=== PATIENT | female | born 1945 | race Caucasian/White ===

== ENCOUNTER 2017-02-08 12:23 | Emergency (ER) | payer MEDICARE ==
[~2017-02-08] VITALS: Ht 162.6 cm; Wt 75.0 kg
[2017-02-08] MEDS ORDERED: MAALOX/HYOSCYAMINE/LIDOCAINE 45 ML BTL ONE (12:56)
[2017-02-08] MEDS ORDERED: ONDANSETRON 2MG/ML, 2ML ONE ×2 (12:56→13:16)
[2017-02-08] MEDS ORDERED: SODIUM CHLORIDE 0.9% 1,000ML IVBOLUS ONE (13:00)
[2017-02-08 13:11] LABS: HEMATOCRIT 41.8 % (34.6-47.8); HEMOGLOBIN 13.6 g/dL (11.7-16.4); WHITE BLOOD COUNT 12.4 x10^3/uL (3.4-10)
[2017-02-08 13:20] LABS: ASPARTATE AMINO TRANSFERASE 7 U/L (15-37); BLOOD UREA NITROGEN 26 mg/dL (7-18)
[2017-02-08] MEDS ORDERED: ONDANSETRON 2MG/ML, 2ML IVPush ONE ×2 (13:30→14:00)
[2017-02-08] MEDS ORDERED: MAALOX/HYOSCYAMINE/LIDOCAINE 45 ML BTL PO ONE (14:00)
[2017-02-08] MEDS ORDERED: PROMETHAZINE 25 MG/ML, 1ML ONE (14:00)
[2017-02-08] MEDS ORDERED: SODIUM CHLORIDE FLUSH 10ML SYR IVF ONE (14:00)
[2017-02-08] MEDS ORDERED: PROMETHAZINE 25 MG/ML, 1ML IM ONE (15:00)
[2017-02-08 15:34] VITALS: BP 150/89
== END 2017-02-08 15:38 | disposition home or self-care (01) ==
LOC: ED 13:23
DX: K29.70 Gastritis, unspecified, without bleeding (principal); R10.13 Epigastric pain; R11.2 Nausea with vomiting, unspecified; R19.7 Diarrhea, unspecified; I10 Essential (primary) hypertension; Z90.710 Acquired absence of both cervix and uterus
CPT/HCPCS: 36415; 76700; 80053; 81001; 83690; 85025; 85610; 87086; 93005; 96361; 96372; 96374; 99285; J2405; J2550; J7030

== ENCOUNTER 2017-09-24 08:57 | Emergency (ER) | payer MEDICARE ==
[~2017-09-24] VITALS: Ht 162.6 cm; Wt 80.1 kg
[2017-09-24 10:14] LABS: CULTURE INDICATED? YES; MICROSCOPIC INDICATED
[2017-09-24 10:59] LABS: BASOPHILS # (AUTO) 0.06 x10^3/uL (0-0.1); BASOPHILS % (AUTO) 0 % (0-1); EOSINOPHILS # (AUTO) 0.03 x10^3/uL (0-0.4); EOSINOPHILS % (AUTO) 0 % (1-7); LYMPHOCYTES # (AUTO) 1.19 x10^3/uL (1-3.4); LYMPHOCYTES % (AUTO) 9 % (22-44); MD NO; MEAN CORPUSCULAR HEMOGLOBIN 29.7 pg (27.0-34.8); MEAN CORPUSCULAR HGB CONC 32.9 g/dL (32.4-35.8); MEAN CORPUSCULAR VOLUME 90.3 fL (80-100); MEAN PLATELET VOLUME 9.2 fL (7.4-10.4); MONOCYTES # (AUTO) 0.74 x10^3/uL (0.2-0.8); MONOCYTES % (AUTO) 5 % (2-9); NEUTROPHILS # (AUTO) 11.84 x10^3/uL (1.8-6.8); NEUTROPHILS % (AUTO) 85 % (42-75); PLATELET COUNT 333 x10^3/uL (130-400); RED BLOOD COUNT 4.75 x10^6/uL (3.82-5.3); RED CELL DISTRIBUTION WIDTH 13.6 % (9.6-15.2)
[2017-09-24 11:08] LABS: ALBUMIN 3.9 g/dL (3.4-5.0); ANION GAP 9 mmol/L (5-15); CHLORIDE 110 mmol/L (98-107); CREATININE 1.69 mg/dL (0.55-1.02)
[2017-09-24] MEDS ORDERED: OXYcodone/APAP 5/325MG TABLET PO ONE (12:00)
[2017-09-24] MEDS ORDERED: KETOROLAC 30 MG/1 ML IM ONE (12:00)
[2017-09-24] MEDS ORDERED: KETOROLAC 30 MG/1 ML ONE (12:05)
[2017-09-24] MEDS ORDERED: OXYcodone/APAP 5/325MG TABLET ONE (12:05)
[2017-09-24 12:47] LABS: MICROSCOPIC INDICATED
[2017-09-24] MEDS ORDERED: ONDANSETRON ODT 4 MG ONE (12:48)
[2017-09-24 12:52] VITALS: BP 143/84
[2017-09-24] MEDS ORDERED: ONDANSETRON ODT 8 MG PO ONE (13:00)
[2017-09-24 13:30] LABS: CULTURE INDICATED? NO
[2017-09-24] MEDS ORDERED: HYDROcodone/APAP 10/325 MG TABLET PO ONE (13:30)
== END 2017-09-24 14:29 | disposition home or self-care (01) ==
LOC: ED 11:45
DX: N13.2 Hydronephrosis with renal and ureteral calculous obstruction (principal); N39.0 Urinary tract infection, site not specified; I10 Essential (primary) hypertension
CPT/HCPCS: 36415; 74176; 80048; 81001; 82040; 85025; 87086; 99285; Q0162

== ENCOUNTER 2017-12-29 09:27 | Emergency (ER) | payer MEDICARE ==
[~2017-12-29] VITALS: Ht 162.6 cm; Wt 76.4 kg
[2017-12-29] MEDS ORDERED: LOSA25TA5 PO (09:56)
[2017-12-29 10:23] LABS: BASOPHILS # (AUTO) 0.07 x10^3/uL (0-0.1); BASOPHILS % (AUTO) 1 % (0-1); EOSINOPHILS # (AUTO) 0.03 x10^3/uL (0-0.4); EOSINOPHILS % (AUTO) 0 % (1-7); LYMPHOCYTES # (AUTO) 1.78 x10^3/uL (1-3.4); LYMPHOCYTES % (AUTO) 14 % (22-44); MD NO; MEAN CORPUSCULAR HEMOGLOBIN 30.6 pg (27.0-34.8); MEAN CORPUSCULAR HGB CONC 33.5 g/dL (32.4-35.8); MEAN CORPUSCULAR VOLUME 91.3 fL (80-100); MEAN PLATELET VOLUME 9.4 fL (7.4-10.4); MONOCYTES # (AUTO) 0.83 x10^3/uL (0.2-0.8); MONOCYTES % (AUTO) 7 % (2-9); NEUTROPHILS # (AUTO) 9.84 x10^3/uL (1.8-6.8); NEUTROPHILS % (AUTO) 78 % (42-75); PLATELET COUNT 343 x10^3/uL (130-400); RED CELL DISTRIBUTION WIDTH 14.2 % (9.6-15.2)
[2017-12-29 10:28] LABS: ALANINE AMINOTRANSFERASE 17 U/L (12-78); ALBUMIN 3.5 g/dL (3.4-5.0); ANION GAP 10 mmol/L (5-15); CALCIUM 8.8 mg/dL (8.5-10.1); CHLORIDE 108 mmol/L (98-107); CREATININE 1.51 mg/dL (0.55-1.02)
[2017-12-29 10:30] LABS: ALKALINE PHOSPHATASE 57 U/L (45-117); BILIRUBIN,TOTAL 0.5 mg/dL (0.2-1.0); TOTAL PROTEIN 7.2 g/dL (6.4-8.2)
[2017-12-29] MEDS ORDERED: SODIUM CHLORIDE FLUSH 10ML SYR IVF ONE (10:30)
[2017-12-29] MEDS ORDERED: MAALOX/HYOSCYAMINE/LIDOCAINE 45 ML BTL PO ONE (10:30)
[2017-12-29] MEDS ORDERED: SODIUM CHLORIDE 0.9% 1,000ML IVBOLUS ONE (10:30)
[2017-12-29] MEDS ORDERED: MAALOX/HYOSCYAMINE/LIDOCAINE 45 ML BTL ONE (10:44)
[2017-12-29] MEDS ORDERED: DIPHENHYDRAMINE 50 MG/ML, 1ML ONE (11:02)
[2017-12-29] MEDS ORDERED: DIPHENHYDRAMINE 50 MG/ML, 1ML IVPush ONE (11:30)
[2017-12-29] MEDS ORDERED: OMNIPAQUE 350 MG/ML, 100ML BOTTLE ONE (11:39)
[2017-12-29 12:50] LABS: MICROSCOPIC NOT IND
[2017-12-29 12:53] LABS: CULTURE INDICATED? NO
[2017-12-29] MEDS ORDERED: SINCALIDE (KINEVAC) 5 MCG ONE (14:11)
[2017-12-29 16:42] VITALS: BP 160/88
== END 2017-12-29 16:44 | disposition home or self-care (01) ==
LOC: ED 12:56
DX: K29.00 Acute gastritis without bleeding (principal); I10 Essential (primary) hypertension; Z90.89 Acquired absence of other organs; Z87.891 Personal history of nicotine dependence; Z90.710 Acquired absence of both cervix and uterus
CPT/HCPCS: 36415; 74177; 78227; 80053; 81003; 83690; 85025; 86677; 96361; 96374; 99285; A9537; C9898; J1200; J2805; J7030; Q9967

== ENCOUNTER 2018-06-02 13:56 | Observation (INO) | payer MEDICARE ==
[~2018-06-02] VITALS: Ht 162.6 cm; Wt 75.4 kg
[~2018-06-02 13:56] MED LIST: LOSA25TA25 PO
--- NOTE | 2018-06-02 14:46 | NUR ---
PT AMBULATORY TO ROOM 34 W/ C/O BLURRY VISION TO L EYE STARTED 3-4 DAYS AGO. PT STATES SHE IS STARTING TO HAVE BLURRY VISION IN RIGHT EYE OVER THE PAST DAY. PT ALSO C/O ABRAMS PAIN TO L TEMPORAL SIDE. PT RESTING ON GURNEY. TRISTAN. CHRISTOS SHARYN AT BEDSIDE. ALL OTHER NEURO INTACT.
[2018-06-02 14:49] LABS: BASOPHILS # (AUTO) 0.07 x10^3/uL (0-0.1); BASOPHILS % (AUTO) 1 % (0-1); EOSINOPHILS # (AUTO) 0.31 x10^3/uL (0-0.4); EOSINOPHILS % (AUTO) 2 % (1-7); LYMPHOCYTES # (AUTO) 2.19 x10^3/uL (1-3.4); LYMPHOCYTES % (AUTO) 14 % (22-44); MD NO; MEAN CORPUSCULAR HEMOGLOBIN 31.2 pg (27.0-34.8); MEAN CORPUSCULAR HGB CONC 33.4 g/dL (32.4-35.8); MEAN CORPUSCULAR VOLUME 93.3 fL (80-100); MEAN PLATELET VOLUME 9.1 fL (7.4-10.4); MONOCYTES # (AUTO) 1.28 x10^3/uL (0.2-0.8); MONOCYTES % (AUTO) 8 % (2-9); NEUTROPHILS # (AUTO) 11.39 x10^3/uL (1.8-6.8); NEUTROPHILS % (AUTO) 75 % (42-75); PLATELET COUNT 432 x10^3/uL (130-400); RED BLOOD COUNT 4.37 x10^6/uL (3.82-5.3); RED CELL DISTRIBUTION WIDTH 13.4 % (9.6-15.2)
--- NOTE | 2018-06-02 14:55 | NUR ---
REPORT GIVEN TO CHASE VAZQUEZ.
--- NOTE | 2018-06-02 14:56 | NUR ---
SBAR report received from RNLeana. Pt ambulated with EDT for VAs. Labs drawn and pt aware of plan for CT scan. Family member at bedside.
[2018-06-02 14:59] LABS: ANION GAP 7 mmol/L (5-15); CHLORIDE 109 mmol/L (98-107)
[2018-06-02] MEDS ORDERED: HYDROcodone/APAP 5/325 TABLET ONE (14:59)
[2018-06-02] MEDS ORDERED: ONDANSETRON ODT 4 MG ONE (14:59)
[2018-06-02] MEDS ORDERED: HYDROcodone/APAP 5/325 TABLET PO ONE (15:00)
[2018-06-02] MEDS ORDERED: ONDANSETRON ODT 4 MG PO ONE (15:00)
[2018-06-02] MEDS ORDERED: PROPARACAINE OPHTH 0.5%, 15ML EACHEYE ONE (15:00)
--- NOTE | 2018-06-02 15:01 | NUR ---
Pt medicated per MAR.
[2018-06-02] MEDS ORDERED: PROPARACAINE OPHTH 0.5%, 15ML ONE ×2 (15:07→17:02)
[2018-06-02] MEDS ORDERED: DIPHENHYDRAMINE 50 MG/ML, 1ML ONE (15:52)
--- NOTE | 2018-06-02 16:16 | NUR ---
Pt to imaging, with tech, on tony.
--- NOTE | 2018-06-02 16:25 | NUR ---
Pt back to room from imaging.
[2018-06-02] MEDS ORDERED: DIPHENHYDRAMINE 50 MG/ML, 1ML IVPush ONE (16:30)
[2018-06-02] MEDS ORDERED: OMNIPAQUE 350 MG/ML, 100ML BOTTLE ONE (16:35)
--- NOTE | 2018-06-02 17:47 | NUR ---
SBAR report to RN, Nadine. Pt moved to eye room.
--- NOTE | 2018-06-02 17:50 | NUR ---
REPORT RECEIVED FROM CHASE VAZQUEZ.
--- NOTE | 2018-06-02 18:15 | NUR ---
RN INTRODUCED SELF TO PT AND FAMILY. PT RESTING COMFORTABLY IN CHAIR. NO NEEDS AT THIS TIME. AWAITING MD TO ROUND ON PT. ORIENTED PT TO CALL LIGHT. PT VERBALIZED UNDERSTANDING. RN TO CONTINUE TO MONITOR.
[2018-06-02] MEDS ORDERED: FENO67CA PO (18:35)
[2018-06-02] MEDS ORDERED: CLON0.1T22 PO (18:35)
[2018-06-02] MEDS ORDERED: LOSA50TA7 PO (18:35)
[2018-06-02] MEDS ORDERED: AMLO-150 PO (18:35)
--- NOTE | 2018-06-02 18:55 | NUR ---
REPORT TO CHASE LEO.
--- NOTE | 2018-06-02 18:57 | NUR ---
REPORT FROM OSVALDO STONE. PT HAS NO NEEDS AT THIS TIME. CALL LIGHT IN REACH
--- NOTE | 2018-06-02 19:20 | NUR ---
opthomology at bedside
[2018-06-02 20:45] VITALS: BP 111/74
[2018-06-02] MEDS ORDERED: LABETALOL 5MG/ML, 20ML IV PRN (21:00)
[2018-06-02] MEDS ORDERED: ONDANSETRON 2MG/ML, 2ML IVPush PRN (21:00)
[2018-06-02] MEDS: HEPARIN 5,000 UNITS/ML, 1ML SQ SCH (21:00)
[2018-06-02] MEDS ORDERED: ACETAMINOPHEN 325 MG TABLET PO PRN (21:00)
[2018-06-02] MEDS ORDERED: morphine SULFATE 10 MG/ML, 1ML IVPush PRN (21:00)
[2018-06-02] MEDS: MELATONIN 5 MG TABLET PO SCH (21:44)
[2018-06-02] MEDS: NS + 20MEQ KCL 1,000 ML IV SCH (22:30)
[2018-06-03 01:54] VITALS: BP 111/71
[2018-06-03] MEDS: HEPARIN 5,000 UNITS/ML, 1ML SQ SCH ×4 (04:37→21:28)
[2018-06-03 04:50] LABS: BASOPHILS # (AUTO) 0.03 x10^3/uL (0-0.1); BASOPHILS % (AUTO) 0 % (0-1); EOSINOPHILS # (AUTO) 0.13 x10^3/uL (0-0.4); EOSINOPHILS % (AUTO) 1 % (1-7); LYMPHOCYTES # (AUTO) 2.16 x10^3/uL (1-3.4); LYMPHOCYTES % (AUTO) 18 % (22-44); MD NO; MEAN CORPUSCULAR HEMOGLOBIN 31.5 pg (27.0-34.8); MEAN CORPUSCULAR HGB CONC 34.1 g/dL (32.4-35.8); MEAN CORPUSCULAR VOLUME 92.2 fL (80-100); MEAN PLATELET VOLUME 8.7 fL (7.4-10.4); MONOCYTES # (AUTO) 1.19 x10^3/uL (0.2-0.8); MONOCYTES % (AUTO) 10 % (2-9); NEUTROPHILS # (AUTO) 8.84 x10^3/uL (1.8-6.8); NEUTROPHILS % (AUTO) 72 % (42-75); PLATELET COUNT 335 x10^3/uL (130-400); RED BLOOD COUNT 3.74 x10^6/uL (3.82-5.3); RED CELL DISTRIBUTION WIDTH 13.8 % (9.6-15.2)
[2018-06-03 04:55] LABS: ANION GAP 7 mmol/L (5-15); CALCIUM 7.6 mg/dL (8.5-10.1); CHLORIDE 113 mmol/L (98-107); CHOLESTEROL, TOTAL 135 mg/dL (140-239); CREATININE 1.41 mg/dL (0.55-1.02); TRIGLYCERIDES 302 mg/dL (50-200); VLDL CHOLESTEROL 60 mg/dL (0-25)
[2018-06-03 04:57] LABS: CHOL/HDL RATIO 4.1; HDL CHOL % 24 % (28-40); HDL CHOLESTEROL (DIRECT) 33 mg/dL (40-60); LDL CHOLESTEROL,CALCULATED 42 mg/dL (54-169); LDL/HDL RATIO 1.3 (0.5-3.0)
[2018-06-03 07:43] VITALS: BP 108/77
[2018-06-03] MEDS: NS + 20MEQ KCL 1,000 ML IV SCH (08:04)
[2018-06-03] MEDS: ASPIRIN 81 MG TABLET CHEW PO/NG SCH (08:04)
[2018-06-03] MEDS: ONDANSETRON ODT 4 MG PO PRN (08:05)
[2018-06-03] MEDS: HYDROcodone/APAP 5/325 TABLET PO PRN ×2 (08:05→13:21)
[2018-06-03] MEDS ORDERED: FENOFIBRATE PO SCH (09:00)
[2018-06-03] MEDS ORDERED: SUMATRIPTAN 6MG/0.5ML SQ PRN (09:00)
[2018-06-03] MEDS: FENOFIBRATE 145 MG TABLET PO SCH (11:06)
[2018-06-03 12:10] LABS: HCT (SEDRATE) 37.5 % (34.6-47.8)
[2018-06-03] MEDS ORDERED: GADOBUTROL 7.5 MMOL/7.5 ML PFS ONE (12:33)
[2018-06-03 15:02] VITALS: BP 124/80
[2018-06-03 17:20] LABS: HEMOGLOBIN A1C 6.2 % (4.2-6.3)
[2018-06-03] MEDS: MELATONIN 5 MG TABLET PO SCH (21:00)
[2018-06-03 21:06] VITALS: BP 106/73
[2018-06-04 00:55] VITALS: BP 110/81
[2018-06-04 06:12] LABS: ANION GAP 9 mmol/L (5-15); CALCIUM 8.5 mg/dL (8.5-10.1); CHLORIDE 111 mmol/L (98-107); CREATININE 1.24 mg/dL (0.55-1.02)
[2018-06-04] MEDS: ONDANSETRON ODT 4 MG PO PRN ×2 (07:41→12:52)
[2018-06-04] MEDS: ASPIRIN 81 MG TABLET CHEW PO/NG SCH (07:41)
[2018-06-04] MEDS: FENOFIBRATE 145 MG TABLET PO SCH (07:41)
[2018-06-04] MEDS: HYDROcodone/APAP 5/325 TABLET PO PRN ×2 (07:42→12:52)
[2018-06-04 07:47] VITALS: BP 123/86
[2018-06-04] MEDS ORDERED: AMLODIPINE 10 MG TAB PO SCH (09:00)
[2018-06-04] MEDS ORDERED: OMNIPAQUE 350 MG/ML, 100ML BOTTLE ONE (10:28)
[2018-06-04] MEDS: HEPARIN 5,000 UNITS/ML, 1ML SQ SCH (13:00)
[2018-06-04] MEDS ORDERED: HYDR-3240 PO (13:01)
[2018-06-04] MEDS ORDERED: ONDA4TAB13 PO (13:01)
[2018-06-04] MEDS ORDERED: SUMA50TA4 PO (13:01)
== END 2018-06-04 15:45 | disposition home or self-care (01) ==
LOC: ED 16:23 → INTOOBSV 19:24 → EDIP 19:24 → 3NE 20:50 → DCLOUNGE 06-04 15:30
PROVIDERS: ADMIT Internal Medicine; ATTEND Internal Medicine
DX: H49.02 Third [oculomotor] nerve palsy, left eye (principal); H53.8 Other visual disturbances; R51 Headache; H53.2 Diplopia; I10 Essential (primary) hypertension; E78.5 Hyperlipidemia, unspecified; D47.3 Essential (hemorrhagic) thrombocythemia; I25.10 Atherosclerotic heart disease of native coronary artery without angina pectoris; Z87.891 Personal history of nicotine dependence; Z90.710 Acquired absence of both cervix and uterus
CPT/HCPCS: 36415; 70470; 70481; 70496; 70498; 70543; 70553; 80048; 80061; 82040; 83036; 84443; 85025; 85651; 86592; 93005; 96372; 96374; 97162; 99284; A9585; G0378; G8978; G8979; G8980; J1200; J3030; J3480; Q0162; Q9967; 99285

== ENCOUNTER 2018-08-09 15:33 | Inpatient (IN) | payer MEDICARE ==
[~2018-08-09] VITALS: Ht 162.6 cm; Wt 69.6 kg
[~2018-08-09 15:33] MED LIST changes: +AMLO-150 PO; +CLON0.1T22 PO; +FENO67CA PO; +HYDR-3240 PO; +LOSA50TA14 PO; +ONDA4TAB13 PO; +SUMA50TA4 PO
--- NOTE | 2018-08-09 15:37 | NUR ---
NO ANSWER WHEN PT CALLED FOR TRIAGE.
[2018-08-09 17:01] LABS: BASOPHILS # (AUTO) 0.06 x10^3/uL (0-0.1); BASOPHILS % (AUTO) 1 % (0-1); EOSINOPHILS # (AUTO) 0.06 x10^3/uL (0-0.4); EOSINOPHILS % (AUTO) 1 % (1-7); LYMPHOCYTES # (AUTO) 1.75 x10^3/uL (1-3.4); LYMPHOCYTES % (AUTO) 14 % (22-44); MD NO; MEAN CORPUSCULAR HEMOGLOBIN 29.9 pg (27.0-34.8); MEAN CORPUSCULAR HGB CONC 32.3 g/dL (32.4-35.8); MEAN CORPUSCULAR VOLUME 92.5 fL (80-100); MEAN PLATELET VOLUME 10.2 fL (7.4-10.4); MONOCYTES # (AUTO) 0.94 x10^3/uL (0.2-0.8); MONOCYTES % (AUTO) 8 % (2-9); NEUTROPHILS # (AUTO) 9.57 x10^3/uL (1.8-6.8); NEUTROPHILS % (AUTO) 77 % (42-75); PLATELET COUNT 336 x10^3/uL (130-400); RED BLOOD COUNT 4.41 x10^6/uL (3.82-5.3); RED CELL DISTRIBUTION WIDTH 13.3 % (9.6-15.2)
[2018-08-09 17:02] LABS: ALBUMIN 3.5 g/dL (3.4-5.0); ANION GAP 8 mmol/L (5-15); CALCIUM 9.1 mg/dL (8.5-10.1); CHLORIDE 112 mmol/L (98-107)
[2018-08-09 17:08] LABS: ALANINE AMINOTRANSFERASE 20 U/L (12-78); ALKALINE PHOSPHATASE 60 U/L (45-117); BILIRUBIN,TOTAL 0.4 mg/dL (0.2-1.0); CREATININE 1.82 mg/dL (0.55-1.02); TROPONIN I < 0.015 ng/mL (0.000-0.045)
--- NOTE | 2018-08-09 18:08 | NUR ---
to room at this time
--- NOTE | 2018-08-09 18:24 | NUR ---
PT LYING IN GURNEY, DAUGHTER AT BS. INFORMED PT OF NEED FOR URINE SAMPLE.
[2018-08-09] MEDS ORDERED: MORPHINE SULFATE 4 MG/ML, 1ML IVPush PRN (19:00)
[2018-08-09] MEDS ORDERED: ONDANSETRON 2MG/ML, 2ML IVPush ONE (19:00)
[2018-08-09] MEDS ORDERED: SODIUM CHLORIDE FLUSH 10ML SYR IVF ONE (19:00)
[2018-08-09] MEDS ORDERED: SODIUM CHLORIDE 0.9% 1,000ML IVBOLUS ONE (19:00)
--- NOTE | 2018-08-09 19:02 | NUR ---
PT UNABLE TO VOID AT THIS TIME. TO CT VIA RTIOGA NOW.
[2018-08-09] MEDS ORDERED: ONDANSETRON 2MG/ML, 2ML ONE (19:40)
[2018-08-09] MEDS ORDERED: MORPHINE SULFATE 4 MG/ML, 1ML ONE (19:40)
--- NOTE | 2018-08-09 19:47 | NUR ---
IV EST'D AND PT MEDICATED FOR PAIN AND NAUSEA. UNDERSTANDS POC. SON AT BS.
[2018-08-09] MEDS ORDERED: BUTA-177 PO (20:05)
[2018-08-09] MEDS ORDERED: CELE200C PO (20:05)
[2018-08-09] MEDS ORDERED: AMLO10TA8 PO (20:05)
[2018-08-09] MEDS ORDERED: LABETALOL 5MG/ML, 20ML IVPush PRN (21:00)
[2018-08-09] MEDS ORDERED: MAALOX/HYOSCYAMINE/LIDOCAINE 45 ML BTL PO ONE (21:30)
[2018-08-09] MEDS ORDERED: morphine SULFATE 10 MG/ML, 1ML IVPush SCH (21:30)
[2018-08-09] MEDS ORDERED: POLYETHYLENE GLYCOL 17 GM PACKET NG ONE (22:00)
[2018-08-09] MEDS ORDERED: POLYETHYLENE GLYCOL 17 GM PACKET PO PRN (22:00)
[2018-08-09] MEDS ORDERED: DOCUSATE 100 MG CAPSULE PO PRN (22:00)
[2018-08-09 22:30] VITALS: BP 141/69
[2018-08-09] MEDS ORDERED: OMNIPAQUE 350 MG/ML, 100ML BOTTLE ONE (23:58)
[2018-08-10] MEDS: LACTATED RINGERS 1,000 ML IV SCH ×2 (00:31→11:52)
[2018-08-10 05:36] LABS: MICROSCOPIC NOT IND
[2018-08-10 05:40] LABS: CULTURE INDICATED? NO
[2018-08-10 05:40] LABS: BASOPHILS # (AUTO) 0.01 x10^3/uL (0-0.1); BASOPHILS % (AUTO) 0 % (0-1); EOSINOPHILS % (AUTO) 2 % (1-7); LYMPHOCYTES # (AUTO) 1.44 x10^3/uL (1-3.4); LYMPHOCYTES % (AUTO) 15 % (22-44); MD NO; MEAN CORPUSCULAR HEMOGLOBIN 30.7 pg (27.0-34.8); MEAN CORPUSCULAR HGB CONC 33.2 g/dL (32.4-35.8); MEAN CORPUSCULAR VOLUME 92.5 fL (80-100); MEAN PLATELET VOLUME 9.7 fL (7.4-10.4); MONOCYTES # (AUTO) 0.76 x10^3/uL (0.2-0.8); MONOCYTES % (AUTO) 8 % (2-9); NEUTROPHILS # (AUTO) 6.96 x10^3/uL (1.8-6.8); NEUTROPHILS % (AUTO) 74 % (42-75); PLATELET COUNT 199 x10^3/uL (130-400); RED BLOOD COUNT 3.79 x10^6/uL (3.82-5.3)
[2018-08-10 05:42] LABS: ALBUMIN 2.9 g/dL (3.4-5.0); ANION GAP 5 mmol/L (5-15); CALCIUM 8.5 mg/dL (8.5-10.1); CHLORIDE 111 mmol/L (98-107)
[2018-08-10 05:46] LABS: ALANINE AMINOTRANSFERASE 55 U/L (12-78); ALKALINE PHOSPHATASE 59 U/L (45-117); BILIRUBIN,TOTAL 0.4 mg/dL (0.2-1.0); CREATININE 1.35 mg/dL (0.55-1.02); TOTAL PROTEIN 5.5 g/dL (6.4-8.2)
[2018-08-10] MEDS: CEFTRIAXONE PMX 2GM/50ML 50 ML IV SCH (06:01)
[2018-08-10] MEDS: METRONIDAZOLE PMX 500MG/100ML 100 ML IV SCH ×3 (06:48→22:21)
[2018-08-10 07:01] LABS: INTERNATIONAL NORMALIZED RATIO 0.94 (0.93-1.1); PROTHROMBIN TIME 9.9 Seconds (9.6-11.5)
[2018-08-10 07:58] VITALS: BP 126/81
[2018-08-10] MEDS ORDERED: AMLODIPINE 10 MG TAB PO SCH (09:00)
[2018-08-10] MEDS: morphine SULFATE 10 MG/ML, 1ML IVPush PRN ×2 (11:13→14:27)
[2018-08-10 14:33] VITALS: BP 113/71
[2018-08-10 19:09] VITALS: BP 115/68
[2018-08-10] MEDS: POLYETHYLENE GLYCOL 17 GM PACKET PO SCH (22:21)
[2018-08-10] MEDS: HYDROcodone/APAP 5/325 TABLET PO PRN (22:22)
[2018-08-11 01:32] VITALS: BP 91/59
[2018-08-11 05:32] LABS: BASOPHILS # (AUTO) 0.04 x10^3/uL (0-0.1); BASOPHILS % (AUTO) 1 % (0-1); EOSINOPHILS # (AUTO) 0.14 x10^3/uL (0-0.4); EOSINOPHILS % (AUTO) 2 % (1-7); LYMPHOCYTES # (AUTO) 1.13 x10^3/uL (1-3.4); LYMPHOCYTES % (AUTO) 18 % (22-44); MD NO; MEAN CORPUSCULAR HEMOGLOBIN 31.1 pg (27.0-34.8); MEAN CORPUSCULAR HGB CONC 33.8 g/dL (32.4-35.8); MEAN PLATELET VOLUME 9.6 fL (7.4-10.4); MONOCYTES # (AUTO) 0.53 x10^3/uL (0.2-0.8); MONOCYTES % (AUTO) 9 % (2-9); NEUTROPHILS # (AUTO) 4.33 x10^3/uL (1.8-6.8); NEUTROPHILS % (AUTO) 70 % (42-75); PLATELET COUNT 190 x10^3/uL (130-400); RED BLOOD COUNT 3.59 x10^6/uL (3.82-5.3); RED CELL DISTRIBUTION WIDTH 13.3 % (9.6-15.2)
[2018-08-11] MEDS: CEFTRIAXONE PMX 2GM/50ML 50 ML IV SCH (05:39)
[2018-08-11 05:40] LABS: ANION GAP 5 mmol/L (5-15); CALCIUM 8.4 mg/dL (8.5-10.1); CHLORIDE 112 mmol/L (98-107); CREATININE 1.21 mg/dL (0.55-1.02)
[2018-08-11] MEDS: ONDANSETRON 2MG/ML, 2ML IVPush PRN ×2 (05:41→12:34)
[2018-08-11] MEDS: METRONIDAZOLE PMX 500MG/100ML 100 ML IV SCH ×3 (06:42→21:29)
[2018-08-11] MEDS: HYDROcodone/APAP 5/325 TABLET PO PRN ×2 (06:45→11:22)
[2018-08-11 07:20] VITALS: BP 105/62
[2018-08-11] MEDS: SENNA/DOCUSATE TABLET PO SCH ×2 (09:44→21:29)
[2018-08-11] MEDS: BISACODYL 10 MG SUPP PR SCH (09:44)
[2018-08-11] MEDS: POLYETHYLENE GLYCOL 17 GM PACKET PO SCH ×2 (09:44→21:28)
[2018-08-11 14:00] VITALS: BP 146/81
[2018-08-11] MEDS ORDERED: ACETAMINOPHEN 325 MG TABLET PO PRN (19:00)
[2018-08-11 20:59] VITALS: BP 120/74
[2018-08-12] MEDS: ONDANSETRON 2MG/ML, 2ML IVPush PRN ×2 (01:59→13:59)
[2018-08-12 02:50] VITALS: BP 123/82
[2018-08-12 03:43] LABS: OCCULT BLOOD NEGATIVE (NEGATIVE)
[2018-08-12] MEDS: CEFTRIAXONE PMX 2GM/50ML 50 ML IV SCH (05:04)
[2018-08-12] MEDS: METRONIDAZOLE PMX 500MG/100ML 100 ML IV SCH ×3 (06:18→21:56)
[2018-08-12] MEDS: POLYETHYLENE GLYCOL 17 GM PACKET PO SCH ×2 (07:06→21:00)
[2018-08-12] MEDS: BISACODYL 10 MG SUPP PR SCH (07:06)
[2018-08-12] MEDS: SENNA/DOCUSATE TABLET PO SCH ×2 (07:06→21:00)
[2018-08-12 07:25] VITALS: BP 127/65
[2018-08-12] MEDS ORDERED: POLY17PO5 PO (13:49)
[2018-08-12] MEDS ORDERED: METR-90 PO (13:49)
[2018-08-12] MEDS ORDERED: CEFD300C37 PO (13:49)
[2018-08-12 14:53] VITALS: BP 122/76
[2018-08-12 20:21] VITALS: BP 107/72
[2018-08-12] MEDS: FAMOTIDINE 20 MG/2 ML IVPush SCH (21:56)
[2018-08-13 01:07] VITALS: BP 105/68
[2018-08-13] MEDS: CEFTRIAXONE PMX 2GM/50ML 50 ML IV SCH (05:42)
[2018-08-13] MEDS: METRONIDAZOLE PMX 500MG/100ML 100 ML IV SCH (06:38)
[2018-08-13 07:35] VITALS: BP 117/74
[2018-08-13] MEDS: FAMOTIDINE 20 MG/2 ML IVPush SCH (08:36)
[2018-08-13] MEDS: SENNA/DOCUSATE TABLET PO SCH (08:36)
[2018-08-13] MEDS: BISACODYL 10 MG SUPP PR SCH (08:36)
[2018-08-13] MEDS: POLYETHYLENE GLYCOL 17 GM PACKET PO SCH (08:36)
== END 2018-08-13 09:45 | disposition home or self-care (01) | DRG 391 ==
LOC: ED 20:32 → EDIP 20:36 → 4NOR 22:17 → DCLOUNGE 08-13 09:35
PROVIDERS: ADMIT Family Medicine; ATTEND Family Medicine
DX: K57.80 Diverticulitis of intestine, part unspecified, with perforation and abscess without bleeding (principal); N17.0 Acute kidney failure with tubular necrosis; R17 Unspecified jaundice; D72.829 Elevated white blood cell count, unspecified; E11.22 Type 2 diabetes mellitus with diabetic chronic kidney disease; I12.9 Hypertensive chronic kidney disease with stage 1 through stage 4 chronic kidney disease, or unspecified chronic kidney disease; I25.10 Atherosclerotic heart disease of native coronary artery without angina pectoris; E11.40 Type 2 diabetes mellitus with diabetic neuropathy, unspecified; K59.03 Drug induced constipation; N18.9 Chronic kidney disease, unspecified; Z66 Do not resuscitate; H53.2 Diplopia; N93.9 Abnormal uterine and vaginal bleeding, unspecified; T40.605A Adverse effect of unspecified narcotics, initial encounter; Y92.89 Other specified places as the place of occurrence of the external cause; Z90.710 Acquired absence of both cervix and uterus; Z90.49 Acquired absence of other specified parts of digestive tract
CPT/HCPCS: 36415; 71045; 74022; 74176; 74177; 80048; 80053; 81003; 82272; 83605; 83690; 84484; 85025; 85610; 85730; 93005; 96374; G0378; J0696; J2405; Q9967; J2270; J3490; J7030; J7120

== ENCOUNTER 2018-08-25 17:02 | Emergency (ER) | payer MEDICARE ==
[~2018-08-25] VITALS: Ht 193 cm; Wt 66.5 kg
[~2018-08-25 17:02] MED LIST changes: +AMLO10TA8 PO; +BUTA-177 PO; +CEFD300C37 PO; +CELE200C PO; +METR-90 PO; +POLY17PO5 PO
[2018-08-25 17:03] VITALS: BP 121/84
[2018-08-25 17:26] LABS: BASOPHILS # (AUTO) 0.04 x10^3/uL (0-0.1); BASOPHILS % (AUTO) 0 % (0-1); EOSINOPHILS # (AUTO) 0.06 x10^3/uL (0-0.4); EOSINOPHILS % (AUTO) 1 % (1-7); LYMPHOCYTES # (AUTO) 1.82 x10^3/uL (1-3.4); LYMPHOCYTES % (AUTO) 15 % (22-44); MD NO; MEAN CORPUSCULAR HEMOGLOBIN 30.9 pg (27.0-34.8); MEAN CORPUSCULAR HGB CONC 33.3 g/dL (32.4-35.8); MEAN CORPUSCULAR VOLUME 92.7 fL (80-100); MEAN PLATELET VOLUME 9.5 fL (7.4-10.4); MONOCYTES # (AUTO) 1.02 x10^3/uL (0.2-0.8); MONOCYTES % (AUTO) 8 % (2-9); NEUTROPHILS # (AUTO) 9.27 x10^3/uL (1.8-6.8); NEUTROPHILS % (AUTO) 76 % (42-75); PLATELET COUNT 334 x10^3/uL (130-400); RED BLOOD COUNT 4.68 x10^6/uL (3.82-5.3); RED CELL DISTRIBUTION WIDTH 13.8 % (9.6-15.2)
[2018-08-25 17:35] LABS: ALANINE AMINOTRANSFERASE 17 U/L (12-78); ALBUMIN 3.9 g/dL (3.4-5.0); ANION GAP 7 mmol/L (5-15); CALCIUM 9.5 mg/dL (8.5-10.1); CHLORIDE 116 mmol/L (98-107); CREATININE 1.42 mg/dL (0.55-1.02)
[2018-08-25 17:37] LABS: ALKALINE PHOSPHATASE 52 U/L (45-117); BILIRUBIN,TOTAL 0.5 mg/dL (0.2-1.0)
--- NOTE | 2018-08-25 18:59 | NUR ---
Pt presents for being ubable to urinate more than a few drops since last night. Pt takin abx for diverticulitis. Pt states neeed to urinate but relieved by sitting up. Bladder scan 191ml. Pt NAD. Navarro inserted.
[2018-08-25 19:01] LABS: MICROSCOPIC AUTO
[2018-08-25 19:15] LABS: CULTURE INDICATED? YES
--- NOTE | 2018-08-25 19:58 | NUR ---
Ramon changed to leg bag. Pt dc in WC with family. NAD.
== END 2018-08-25 20:00 | disposition home or self-care (01) ==
LOC: ED 19:54
DX: R33.0 Drug induced retention of urine (principal); I10 Essential (primary) hypertension; Z90.49 Acquired absence of other specified parts of digestive tract; Z90.710 Acquired absence of both cervix and uterus
CPT/HCPCS: 36415; 51702; 74176; 80053; 81001; 85025; 87086; 99284

== ENCOUNTER 2018-08-28 13:10 | Inpatient (IN) | payer MEDICARE ==
[~2018-08-28] VITALS: Ht 162.6 cm; Wt 65.9 kg
[2018-08-28] MEDS ORDERED: SODIUM CHLORIDE FLUSH 10ML SYR IVF ONE (13:30)
[2018-08-28] MEDS ORDERED: PLEASE ENTER HEIGHT AND WEIGHT MC SCH (13:30)
--- NOTE | 2018-08-28 13:31 | NUR ---
Pt BIB EMS from home for ALOC and new onset L sided deficits. Pt was definitively last seen normal at 2100 last night but family that lives with pt states that they heard her up and about this morning. Pt states she ambulated to BR this AM and that she had sudden onset of ABRAMS to R frontal area at about 0900. Pt had no movement to L side of body or face, slurred speech, ABRAMS to R frontal. Full sensation bilaterally. AAOx4 however, family states she ias acting not herself. Pt will not track with either eye. 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 VSS per EMS report. BG 135 by EMS. Family at bedside.
[2018-08-28 14:09] LABS: BASOPHILS # (AUTO) 0.04 x10^3/uL (0-0.1); BASOPHILS % (AUTO) 0 % (0-1); EOSINOPHILS # (AUTO) 0.02 x10^3/uL (0-0.4); EOSINOPHILS % (AUTO) 0 % (1-7); HCT (SEDRATE) 42.3 % (34.6-47.8); LYMPHOCYTES # (AUTO) 1.24 x10^3/uL (1-3.4); LYMPHOCYTES % (AUTO) 12 % (22-44); MD NO; MEAN CORPUSCULAR HEMOGLOBIN 30.5 pg (27.0-34.8); MEAN CORPUSCULAR HGB CONC 32.9 g/dL (32.4-35.8); MEAN CORPUSCULAR VOLUME 92.9 fL (80-100); MONOCYTES # (AUTO) 0.85 x10^3/uL (0.2-0.8); MONOCYTES % (AUTO) 9 % (2-9); NEUTROPHILS # (AUTO) 7.84 x10^3/uL (1.8-6.8); NEUTROPHILS % (AUTO) 78 % (42-75); PLATELET COUNT 292 x10^3/uL (130-400); RED BLOOD COUNT 4.54 x10^6/uL (3.82-5.3); RED CELL DISTRIBUTION WIDTH 13.5 % (9.6-15.2)
[2018-08-28 14:14] LABS: ALBUMIN 3.6 g/dL (3.4-5.0); ANION GAP 6 mmol/L (5-15); CALCIUM 8.9 mg/dL (8.5-10.1); CHLORIDE 115 mmol/L (98-107)
[2018-08-28 14:15] LABS: INTERNATIONAL NORMALIZED RATIO 0.97 (0.93-1.1); PROTHROMBIN TIME 10.2 Seconds (9.6-11.5)
[2018-08-28 14:19] LABS: TROPONIN I < 0.015 ng/mL (0.000-0.045)
[2018-08-28] MEDS ORDERED: ASPIRIN 300 MG SUPP PR ONE (14:30)
[2018-08-28] MEDS ORDERED: OMNIPAQUE 350 MG/ML, 100ML BOTTLE ONE (14:49)
[2018-08-28] MEDS ORDERED: MORPHINE SULFATE 4 MG/ML, 1ML IVPush ONE (15:30)
--- NOTE | 2018-08-28 15:31 | NUR ---
Pt family, speech is getting worse. Not noticeable to this RN. MD aware.
[2018-08-28] MEDS ORDERED: MORPHINE SULFATE 4 MG/ML, 1ML ONE (15:36)
[2018-08-28 16:58] VITALS: BP 135/91
[2018-08-28] MEDS ORDERED: LIDODERM 5% PATCH TD PRN (17:30)
[2018-08-28] MEDS ORDERED: LACTATED RINGERS 1,000 ML IV SCH (17:30)
[2018-08-28] MEDS ORDERED: PANT40TA5 PO (17:31)
[2018-08-28] MEDS ORDERED: FENO54TA17 PO (17:31)
[2018-08-28] MEDS ORDERED: ATOR10TA PO (17:31)
[2018-08-28] MEDS ORDERED: RANI150T4 PO (17:31)
[2018-08-28] MEDS ORDERED: GABA600T7 PO (17:31)
[2018-08-28 19:43] LABS: ANION GAP 9 mmol/L (5-15); CALCIUM 9.1 mg/dL (8.5-10.1); CHLORIDE 115 mmol/L (98-107)
[2018-08-28 20:00] VITALS: BP 136/92
[2018-08-28] MEDS ORDERED: morphine SULFATE 10 MG/ML, 1ML ONE (21:52)
[2018-08-28] MEDS: morphine SULFATE 10 MG/ML, 1ML IVPush PRN (21:56)
[2018-08-28 22:06] VITALS: BP 126/87
[2018-08-29] VITALS (8 sets, daily range): BP systolic 120–136; BP diastolic 82–88
[2018-08-29 03:16] LABS: CHOL/HDL RATIO 3.5; LDL/HDL RATIO 1.3 (0.5-3.0)
[2018-08-29 03:37] LABS: ANION GAP 12 mmol/L (5-15); CHLORIDE 115 mmol/L (98-107); CREATININE 0.93 mg/dL (0.55-1.02)
[2018-08-29] MEDS: ASPIRIN 300 MG SUPP PR SCH (09:31)
[2018-08-29 12:13] LABS: ANION GAP 10 mmol/L (5-15); CALCIUM 8.7 mg/dL (8.5-10.1); CHLORIDE 114 mmol/L (98-107); CREATININE 0.83 mg/dL (0.55-1.02)
[2018-08-29] MEDS: LACTATED RINGERS 1,000 ML IV SCH (14:16)
[2018-08-29] MEDS ORDERED: ACETAMINOPHEN 650 MG SUPP PR PRN (15:30)
--- NOTE | 2018-08-29 17:18 | NUR ---
REC NPO WITH ICE CHIPS; PLAN FOR INSTRUMENTAL ASSESSMENT TOMORROW AM; swallow precautions sheet posted at bedside Addendum: 08/29/18 at [address] Amended: Links added.
[2018-08-29] MEDS ORDERED: LACTATED RINGERS 1,000 ML IV SCH (17:30)
[2018-08-29 18:38] LABS: ANION GAP 9 mmol/L (5-15); CALCIUM 8.5 mg/dL (8.5-10.1); CHLORIDE 116 mmol/L (98-107); CREATININE 0.74 mg/dL (0.55-1.02)
[2018-08-29 19:07] LABS: MICROSCOPIC INDICATED
[2018-08-29 19:23] LABS: CULTURE INDICATED? NO
[2018-08-30] VITALS (7 sets, daily range): BP systolic 130–182; BP diastolic 81–94
[2018-08-30] MEDS: LACTATED RINGERS 1,000 ML IV SCH ×2 (00:06→13:01)
[2018-08-30] MEDS ORDERED: SODIUM CHLORIDE 0.9%, 500ML IVBOLUS ONE (01:00)
[2018-08-30 02:16] LABS: ANION GAP 8 mmol/L (5-15); CALCIUM 8.7 mg/dL (8.5-10.1); CHLORIDE 115 mmol/L (98-107); CREATININE 0.76 mg/dL (0.55-1.02)
[2018-08-30] MEDS: ASPIRIN 300 MG SUPP PR SCH (10:28)
[2018-08-30 11:59] LABS: CALCIUM 8.8 mg/dL (8.5-10.1); CHLORIDE 113 mmol/L (98-107)
[2018-08-30 12:01] LABS: ANION GAP 10 mmol/L (5-15); CREATININE 0.87 mg/dL (0.55-1.02)
[2018-08-30] MEDS: morphine SULFATE 10 MG/ML, 1ML IVPush PRN (17:55)
[2018-08-31 01:00] VITALS: BP 130/85
[2018-08-31 01:56] LABS: ANION GAP 12 mmol/L (5-15); CHLORIDE 114 mmol/L (98-107); CREATININE 0.71 mg/dL (0.55-1.02)
[2018-08-31 03:13] LABS: HEMOGLOBIN A1C 5.7 % (4.2-6.3)
[2018-08-31 04:45] VITALS: BP 143/88
[2018-08-31 07:07] VITALS: BP 139/82
[2018-08-31] MEDS: ASPIRIN 300 MG SUPP PR SCH (11:13)
[2018-08-31 12:32] VITALS: BP 132/79
[2018-08-31] MEDS: LACTATED RINGERS 1,000 ML IV SCH (12:48)
== END 2018-08-31 18:29 | disposition hospice, inpatient (51) | DRG 65 ==
LOC: ED 15:25 → EDIP 15:31 → 4WST 16:47
PROVIDERS: ADMIT Internal Medicine; ATTEND Internal Medicine
PROC: 0T9B70Z Drainage of Bladder with Drainage Device, Via Natural or Artificial Opening (ICD-10-PCS; principal; 2018-08-29)
DX: I63.431 Cerebral infarction due to embolism of right posterior cerebral artery (principal); G81.94 Hemiplegia, unspecified affecting left nondominant side; I63.411 Cerebral infarction due to embolism of right middle cerebral artery; I10 Essential (primary) hypertension; E11.9 Type 2 diabetes mellitus without complications; E78.5 Hyperlipidemia, unspecified; G51.0 Bell's palsy; I25.10 Atherosclerotic heart disease of native coronary artery without angina pectoris; I65.21 Occlusion and stenosis of right carotid artery; Z66 Do not resuscitate; Z79.82 Long term (current) use of aspirin; Z86.73 Personal history of transient ischemic attack (TIA), and cerebral infarction without residual deficits; Z87.891 Personal history of nicotine dependence; Z90.710 Acquired absence of both cervix and uterus; Z90.49 Acquired absence of other specified parts of digestive tract
CPT/HCPCS: 36415; 70450; 70496; 70498; 71045; 80048; 80061; 81001; 82040; 83036; 84484; 85025; 85610; 85651; 85730; 93005; 93306; 96374; 99291; G0378; Q9967; J2270; J7040; J7120